=== PATIENT | female | born 1945 | race Caucasian/White ===

== ENCOUNTER 2021-07-07 08:54 | Outpatient (CLI) | payer OTHER | END 2021-07-07 09:04 | disposition home or self-care (01) | LOC: RAD 08:54 | PROVIDERS: ATTEND Internal Medicine Cardiovascular Disease | DX: M17.11 Unilateral primary osteoarthritis, right knee (principal); J43.9 Emphysema, unspecified ==

== ENCOUNTER 2021-11-29 10:35 | Outpatient (CLI) | payer OTHER | END 2021-11-29 10:50 | disposition home or self-care (01) | LOC: PPH VACUNA 10:35 | PROVIDERS: ATTEND Emergency Medicine Pediatric Emergency Medicine | DX: Z23 Encounter for immunization (principal) ==

== ENCOUNTER 2022-04-15 10:31 | Outpatient (CLI) | payer OTHER | END 2022-04-15 10:32 | disposition home or self-care (01) | LOC: RAD 10:31 | DX: R10.10 Upper abdominal pain, unspecified (principal) ==

== ENCOUNTER 2022-09-23 11:56 | Emergency (ER) | payer OTHER ==
[~2022-09-23] VITALS: Ht 162.6 cm; Wt 81.6 kg
== END 2022-09-23 13:36 | disposition home or self-care (01) ==
LOC: ER 11:56
DX: R42 Dizziness and giddiness (principal); E78.49 Other hyperlipidemia; G44.89 Other headache syndrome; Z91.041 Radiographic dye allergy status

== ENCOUNTER 2023-08-14 08:15 | Inpatient (IN) | payer OTHER ==
[~2023-08-14] VITALS: Ht 152.4 cm; Wt 79.8 kg
[2023-08-14] MEDS ORDERED: PROAIR RESPICL90 MCG (08:22)
[2023-08-14] MEDS ORDERED: RAYOS2 MG (08:22)
[2023-08-14] MEDS ORDERED: ZYNCOF 400-201 EACH (08:22)
[2023-08-14] MEDS ORDERED: LEVALBUTEROL HCL 1.25 MG/3 ML SOLUTION IH SCH (09:00)
[2023-08-14] MEDS ORDERED: HYDROCODONE/CHLORPHEN P-STIREX 5 ML ML PO ONE (09:00)
[2023-08-14] MEDS ORDERED: METHYLPREDNISOLONE SOD SUCC 125 MG VIAL IV ONE (09:00)
[2023-08-14 09:20] LABS: HEMOGLOBIN 13.9 g/dL (12.0-15.00); MEAN CELL VOLUME 90.7 fL (80.00-100.00); MEAN CORPUSCULAR HEMOGLOBIN 30.7 pg (27.00-32.0); MEAN CORPUSCULAR HGB CONC 33.8 g/dl (32.0-36.0); PLATELET COUNT 268 K/uL (150-450); RED BLOOD COUNT 4.52 M/uL (4.00-6.00); RED CELL DISTRIBUTION WIDTH 14.5 % (11.5-14.5)
[2023-08-14 09:55] LABS: ABG PH 7.473 (7.35-7.45); ABG PO2 97.2 mmHg (80-100); BASE EXCESS 1.3 mmol/l; BICARBONATE 24.4 mmol/l (23-25); Tco2 25.4 mmol/l; allen test SATISFACTORY; puncture site RADIAL RIGHT
[2023-08-14 11:04] LABS: ALBUMIN 3.6 gm/dL (3.4-5.0); BILIRUBIN TOTAL 0.43 mg/dL (0.3-1.2); CALCIUM 10.4 mg/dL (8.5-10.1); CREATININE SERUM 0.75 mg/dL (0.55-1.02); GFR 74.93; GLOBULINA 3.8 G/DL (2.4-3.5); POTASSIUM 4.92 mEq/L (3.5-5.1); TOTAL PROTEIN 7.4 gm/dL (6.4-8.2)
[2023-08-14] MEDS ORDERED: AZITHROMYCIN 500 MG in 0.9 % SODIUM CHLORIDE 250 ML IV SCH (12:14)
[2023-08-14] MEDS ORDERED: METHYLPREDNISOLONE SOD SUCC 40 MG VIAL IV SCH (12:14)
[2023-08-14] MEDS ORDERED: GUAIFENESIN 200 MG/10 ML BLIST.PACK PO SCH (12:14)
[2023-08-14] MEDS ORDERED: BUDESONIDE 0.5 MG/2 ML AMPUL.NEB IH SCH (12:15)
[2023-08-14] MEDS ORDERED: FAMOTIDINE/PF 20 MG/2 ML VIAL IV SCH (12:15)
[2023-08-14] MEDS ORDERED: ACETAMINOPHEN 325 MG TABLET PO PRN (12:30)
[2023-08-14] MEDS ORDERED: ALBUTEROL SULFATE 3 ML/2.5 MG AMPUL.NEB IH SCH (13:00)
[2023-08-14 14:31] LABS: PH,URINE 5.5 (5.0-8.0); URINE APPEARANCE Clear; URINE BILIRRUBIN Negative (NEGATIVE); URINE BLOOD Negative; URINE COLOR Dark Yellow; URINE GLUCOSE Negative (NEGATIVE); URINE LEUKOCYTE Negative; URINE NITRATE Negative; URINE PROTEIN Negative (NEGATIVE); URINE UROBILINOGEN 0.2 E.U./dl
[2023-08-14 14:34] LABS: URINE BACTERIA 98.2 uL (0.0-1933); URINE EPITHELIAL CELLS 3.4 uL (0.0-38.8); URINE RBC 21.5 uL (0.0-20.8)
[2023-08-14 14:38] LABS: URINE WBC 0.9 uL (0.0-23.2)
[2023-08-15 07:14] LABS: ABG PH 7.467 (7.35-7.45); ABG PO2 119.1 mmHg (80-100); ABG pCO2 30.8 mmHg (35-45); BASE EXCESS -0.8 mmol/l; BICARBONATE 21.8 mmol/l (23-25); SaO2 98.9 %; Tco2 22.7 mmol/l; allen test SATISFACTORY; o2 28 %; puncture site RADIAL RIGHT
[2023-08-15] MEDS ORDERED: levoFLOXacin IN DEXTROSE 5 % 150 ML IV SCH (17:53)
[2023-08-15] MEDS ORDERED: MEMANTINE HCL 10 MG TABLET PO SCH (17:54)
[2023-08-15] MEDS ORDERED: ATORVASTATIN CALCIUM 10 MG TABLET PO SCH (17:54)
[2023-08-15] MEDS ORDERED: LACTOBACILLUS ACIDOPHILUS 1 CAP CAP PO SCH (17:55)
[2023-08-15] MEDS ORDERED: METHYLPREDNISOLONE SOD SUCC 40 MG VIAL IV SCH (21:00)
[2023-08-16] MEDS ORDERED: LEVOTHYROXINE SODIUM 25 MCG TABLET PO SCH (06:00)
[2023-08-16 07:37] LABS: CHOL HDL RATIO 3.1 (0-5.0); T4 FREE 1.08 NG/ML (0.76-1.46)
[2023-08-16 07:50] LABS: C-REACTIVE PROTEIN 0.74 MG/DL (0.00-0.29); TSH 0.108 uIU/mL (0.358-3.74)
== END 2023-08-16 11:52 | disposition left against medical advice (07) | DRG 191 ==
LOC: ER 08:15 → MEDI 12:15 → SEC-K 12:15 → MEDI 13:38
PROVIDERS: General Practice; ADMIT Internal Medicine; ATTEND Internal Medicine
PROC: BW24ZZZ Computerized Tomography (CT Scan) of Chest and Abdomen (ICD-10-PCS; principal; 2023-08-14)
DX: J44.1 Chronic obstructive pulmonary disease with (acute) exacerbation (principal); J45.902 Unspecified asthma with status asthmaticus; E03.9 Hypothyroidism, unspecified; L28.0 Lichen simplex chronicus; F17.200 Nicotine dependence, unspecified, uncomplicated

== ENCOUNTER 2023-12-12 09:44 | Outpatient (CLI) | payer OTHER ==
[~2023-12-12 09:44] MED LIST: PROAIR RESPICL90 MCG; RAYOS2 MG; ZYNCOF 400-201 EACH
== END 2023-12-12 09:48 | disposition home or self-care (01) ==
LOC: RAD 09:44
PROVIDERS: ATTEND Physical Medicine & Rehabilitation
DX: M54.2 Cervicalgia (principal)

== ENCOUNTER 2024-04-08 11:28 | Outpatient (CLI) | payer OTHER | END 2024-04-08 11:33 | disposition home or self-care (01) | LOC: SONOGRAMA 11:28 | PROVIDERS: ATTEND Urology | DX: N20.0 Calculus of kidney (principal) ==